=== PATIENT | male | born 1960 | race Caucasian/White ===

== ENCOUNTER → 2016-06-17 | Outpatient (CLI) | payer OTHER ==
[~2016-06-17] MED LIST: A THTAB2 PO; ASPI81TA81; ATOM60 PO; ATOR1TAB18 PO; CYCL1TAB29 PO; CYMB60CA PO; DULO1CAP PO; GABA800T PO; GLIP5TAB8 PO; GLUCTES27 TOP; IBUP-232 PO; IBUP800T23 PO; LISI-515 PO; METF1000 PO; SERO400T PO; TEGR200T PO
[2016-06-17 09:59] LABS: AUTOMATED NEUTROPHIL # 10.1 TH/MM3 (1.8-7.7); BASOPHIL % 0.2 % (0.0-2.0); EOSINOPHIL # 0.2 TH/MM3 (0-0.4); EOSINOPHIL % 1.2 % (0.0-4.0); HEMATOCRIT 37.9 % (39.0-51.0); HEMO FLAGS DIFF FINAL; LYMPH % 15.5 % (9.0-44.0); MEAN CELL VOLUME 89.5 FL (80.0-100.0); MEAN CORPUSCULAR HEMOGLOBIN 31.6 PG (27.0-34.0); MEAN CORPUSCULAR HGB CONC 35.3 % (32.0-36.0); NEUT % 78.1 % (16.0-70.0); PLATELET COUNT 244 TH/MM3 (150-450); RED BLOOD COUNT 4.24 MIL/MM3 (4.50-5.90); RED CELL DISTRIBUTION WIDTH 13.1 % (11.6-17.2); WHITE BLOOD COUNT 12.9 TH/MM3 (4.0-11.0)
[2016-06-17 10:32] LABS: ALKALINE PHOSPHATASE 110 U/L (45-117); ALT (GPT) 25 U/L (12-78); ANION GAP 7 MEQ/L (5-15); AST (GOT) 14 U/L (15-37); BICARBONATE 32.7 MEQ/L (21.0-32.0); BLOOD UREA NITROGEN 11 MG/DL (7-18); CHLORIDE 95 MEQ/L (98-107); GLOMERULAR FILTRATION RATE 66 ML/MIN (>89); GLUCOSE,FASTING 235 MG/DL (74-99); HDL CHOLESTEROL 49.5 MG/DL (40.0-60.0); LDL CHOLESTEROL 73 MG/DL (0-99); POTASSIUM 3.9 MEQ/L (3.5-5.1); SODIUM (NA) 135 MEQ/L (136-145); TOTAL BILIRUBIN ADULT 0.3 MG/DL (0.2-1.0)
[2016-06-17 11:58] LABS: HEMOGLOBIN A1a 0.9 %; HEMOGLOBIN A1b 2.4 %; HEMOGLOBIN Ao 81.8 %; HEMOGLOBIN LA1C 2.9 %; HEMOGLOBIN P3 4.1 %
== END ==
LOC: CLAB 09:09
PROVIDERS: ATTEND Family Medicine
DX: F90.0 Attention-deficit hyperactivity disorder, predominantly inattentive type (principal); E11.9 Type 2 diabetes mellitus without complications; E66.9 Obesity, unspecified; I10 Essential (primary) hypertension; E78.5 Hyperlipidemia, unspecified; F32.9 Major depressive disorder, single episode, unspecified; F31.9 Bipolar disorder, unspecified
CPT/HCPCS: 36415; 80053; 80061; 80156; 83036; 84443; 85025

== ENCOUNTER 2016-10-13 21:03 | Emergency (ER) | payer OTHER ==
[~2016-10-13 21:03] MED LIST changes: -CYCL1TAB29 PO; -DULO1CAP PO; -IBUP-232 PO
[2016-10-13 21:06] VITALS: BP 139/78; PULSE 98; RESP 16; TEMP 98.1; O2SAT 98
--- NOTE | 2016-10-13 21:43 | PD ---
Physical Exam Date Seen by Provider: Oct 13, 2016 Time Seen by Provider: 21:41 Data Data Last Documented VS Vital Signs Date Time Temp Pulse Resp B/P Pulse Ox O2 Delivery O2 Flow Rate FiO2 10/13/16 21:06 98.1 98 16 139/78 98 Room Air MDM Supervised Visit with SARA: No Narrative Course 55 YO M with PMH of DM, HTN with complaint of right knee pain. Onset after fall this AM. Worsening over the day. Patient is ambulatory with a limp. Vitals reviewed. Awaiting bed placement. Tiki Mccray Oct 13, 2016 21:42
[2016-10-13] MEDS ORDERED: IBUP800T23 PO (22:10)
[2016-10-13] MEDS ORDERED: CYCL1TAB29 PO (22:10)
--- NOTE | 2016-10-13 22:16 | PD ---
HPI Chief Complaint: Injury Time Seen by Provider: 22:10 Travel History International Travel<30 days: No Contact w/Intl Traveler<30days: No Traveled to known affect area: No History of Present Illness HPI Patient is a 55-year-old male presenting to emergency for evaluation of right knee pain. Patient states he was working on his car when he went to stand up, he states he almost lost his balance and that is when he felt his knee pull. He denies landing on his knee. Patient was ambulatory after the initial incident occurred. He reports resting this afternoon and when he attempted to get up the pain was worse so he presented to the emergency department for evaluation. He reports the pain is a 5 out of 10 and describes it as sore, he has been taking ibuprofen. PFSH Past Medical History Blood Disorders: No Bipolar Disorder: Yes Anxiety: Yes Depression: Yes Cancer: No Cardiovascular Problems: Yes High Cholesterol: Yes Diabetes: Yes Patient Takes Glucophage: No Endocrine: Yes Glaucoma: No Genitourinary: Yes Headaches: Yes Hepatitis: No Hiatal Hernia: No Hypertension: Yes Immune Disorder: No Kidney Stones: Yes Musculoskeletal: Yes Neurologic: Yes Psychiatric: Yes (BIPOLAR) Respiratory: Yes Integumentary: Yes (RASH ON CHEST ANTERIOR CHEST WALL STATES BEEN THERE AWHILE ) Thyroid Disease: No PNEUMOCCOCAL Vaccine (Year): 1 Past Surgical History Abdominal Surgery: Yes (UMBILICAL HERNIA REPAIR) AICD: No Arteriovenous Shunt: No Insulin Pump: No Joint Replacement: No Neurologic Surgery: Yes (LUMBAR DISCECTOMY) Pacemaker: No Tonsillectomy: Yes Other Surgery: Yes Social History Alcohol Use: No Tobacco Use: Yes (1 PPD) Substance Use: No Allergies-Medications (Allergen,Severity, Reaction): Coded Allergies: No Known Allergies (Verified , 06/22/16) Reported Meds & Prescriptions Reported Meds & Active Scripts Active Lisinopril 20 Mg Tab 20 Mg PO DAILY Atorvastatin (Atorvastatin Calcium) 80 Mg Tab 80 Mg PO HS Glipizide 5 Mg Tab 5 Mg PO TID Take 30 minutes before a meal Gabapentin 800 Mg Tab 800 Mg PO QID [email or web address] Contour Next Blood Test Strips (Blood Glucose Test Strips) 1 Cadence Cadence 1 Strip TOP DAILY Metformin (Metformin HCl) 1,000 Mg Tab 1,000 Mg PO BIDPC With meals Reported Aspir-81 (Aspirin) 81 Mg Tabdr Ibuprofen 800 Mg Tab 800 Mg PO TID Cymbalta DR (Duloxetine HCl) 60 Mg Capdr 60 Mg PO HS Strattera (Atomoxetine HCl) 60 Mg Cap 60 Mg PO DAILY Seroquel (Quetiapine Fumarate) 400 Mg Tab 400 Mg PO BID Tegretol (Carbamazepine) 200 Mg Tab 200 Mg PO BID Review of Systems Except as stated in HPI: all other systems reviewed are Neg Musculoskeletal: Positive: Myalgias, Pain Physical Exam Narrative GENERAL: Well-nourished, well-developed patient. SKIN: Focused skin assessment warm/dry. HEAD: Normocephalic. EYES: No scleral icterus. No injection or drainage. NECK: Supple, trachea midline. No JVD or lymphadenopathy. CARDIOVASCULAR: Regular rate and rhythm without murmurs, gallops, or rubs. RESPIRATORY: Breath sounds equal bilaterally. No accessory muscle use. GASTROINTESTINAL: Abdomen soft, non-tender, nondistended. MUSCULOSKELETAL: No cyanosis, or edema. No obvious deformities noted. Full range of motion in right knee, no crepitus noted. Negative anterior drawer. Patient is neurovascularly intact. BACK: Nontender without obvious deformity. No CVA tenderness. Data Data Last Documented VS Vital Signs Date Time Temp Pulse Resp B/P Pulse Ox O2 Delivery O2 Flow Rate FiO2 10/13/16 21:06 98.1 98 16 139/78 98 Room Air [facility] Medical Decision Making Medical Screen Exam Complete: Yes Emergency Medical Condition: Yes Interpretation(s) Vital Signs Date Time Temp Pulse Resp B/P Pulse Ox O2 Delivery O2 Flow Rate FiO2 10/13/16 21:06 98.1 98 16 139/78 98 Room Air Differential Diagnosis Sprain versus strain versus spasm versus arthritis versus tear Narrative Course Patient is a 55-year-old male presenting with right knee pain that occurred earlier this morning. It was exacerbated after a period of rest this afternoon. Patient is ambulatory on his knee, there is no obvious deformities, he has full range of motion. It is less likely that patient has a fracture at this time because knee did not make impact with anything. His pain was exacerbated after he rested this afternoon, likely suggesting that pain is more musculoskeletal in nature. Patient was encouraged to trial conservative management. Patient was advised to continue range of motion exercises, alternate heat and ice to affected area, take medications as directed, avoid exacerbating activities. He was advised to follow-up with Dr. Emmanuel in the clinic in one week area he was advised to return to emergency department for any new or worsening symptoms. Patient verbalized understanding of these instructions. Patient is stable for discharge Diagnosis Primary Impression: Knee pain Qualified Code: M25.561 - Right knee pain, unspecified chronicity Referrals: Nia Emmanuel MD 1 week Patient Instructions: General Instructions, Knee Exercises (GEN), Knee Pain (ED ) Additional Instructions: Rest, ice, elevate extremity Continue range of motion exercises Avoid exacerbating activities Take medications as directed Follow-up with your primary doctor Return to emergency department for any new or worsening symptoms Med/Other Pt SpecificInfo: Prescription(s) given Scripts Cyclobenzaprine (Flexeril)10 Mg Tab10 Mg PO TID PRN (MUSCLE SPASM) 7 Days Ref 0 Prov:Ivana Dia 10/13/16 Ibuprofen 800 Mg [id number] Mg PO Q6HR PRN (PAIN) #40 TAB Ref 0 Prov:Ivana Dia 10/13/16 Disposition: 01 DISCHARGE HOME Condition: Stable Ivana Dia Oct 13, 2016 22:16
[2016-10-13 22:21] VITALS: BP 167/54
== END 2016-10-13 22:22 | disposition home or self-care (01) ==
LOC: NEPD 21:03
DX: M25.561 Pain in right knee (principal); I10 Essential (primary) hypertension; E11.9 Type 2 diabetes mellitus without complications; E78.00 Pure hypercholesterolemia, unspecified; F17.200 Nicotine dependence, unspecified, uncomplicated; Z79.84 Long term (current) use of oral hypoglycemic drugs; Z86.79 Personal history of other diseases of the circulatory system; Z87.448 Personal history of other diseases of urinary system; Z87.39 Personal history of other diseases of the musculoskeletal system and connective tissue; Z86.59 Personal history of other mental and behavioral disorders
CPT/HCPCS: 99283

== ENCOUNTER → 2016-12-23 | Outpatient (CLI) | payer OTHER ==
[~2016-12-23] MED LIST changes: -A THTAB2 PO; -ATOM60 PO; +GABA600T PO; -GABA800T PO; +META48.53 PO; +TAMS5CAP PO
[2016-12-23 16:53] LABS: HEMOGLOBIN A1a 0.9 %; HEMOGLOBIN A1b 2.4 %; HEMOGLOBIN Ao 81.9 %; HEMOGLOBIN LA1C 3.2 %
== END ==
LOC: CLAB 08:55
PROVIDERS: ATTEND Family Medicine
DX: E11.9 Type 2 diabetes mellitus without complications (principal); R39.11 Hesitancy of micturition
CPT/HCPCS: 83036; 84153

== ENCOUNTER 2017-01-26 09:18 | Emergency (ER) | payer OTHER ==
[~2017-01-26] VITALS: Ht 177.8 cm; Wt 91.0 kg
[2017-01-26 09:20] VITALS: BP 154/73; PULSE 94; RESP 17; TEMP 98.4; O2SAT 98
[2017-01-26] MEDS ORDERED: TAMS5CAP PO (09:32)
--- NOTE | 2017-01-26 11:08 | PD ---
HPI Chief Complaint: Skin Problem Time Seen by Provider: 10:02 Travel History International Travel<30 days: No Contact w/Intl Traveler<30days: No Traveled to known affect area: No History of Present Illness HPI STATES THAT HE HAS NOTED PURPLE LOOKING TOENAIL TO BOTH SECOND TOES, PATIENT STATES DOESN'T RECALL ANY DIRECT TRAUMA BUT WOKE UP WITH THIS. PER PT HE HAS NO CLEAT FEEDER AT THIS POINT. DENIES PAIN, NO DISCOLORATION TO REST OF FOOT, NO ITCHING, NO PAIN. PFSH Past Medical History Blood Disorders: No Bipolar Disorder: Yes Anxiety: Yes Depression: Yes Cancer: No Cardiovascular Problems: Yes High Cholesterol: Yes Diabetes: Yes Patient Takes Glucophage: Yes Endocrine: Yes Gastrointestinal Disorders: Yes Glaucoma: No Genitourinary: Yes Headaches: Yes Hepatitis: No Hiatal Hernia: No Hypertension: Yes Immune Disorder: No Kidney Stones: Yes Musculoskeletal: Yes Neurologic: Yes Psychiatric: Yes (BIPOLAR) Respiratory: Yes Integumentary: Yes (RASH ON CHEST ANTERIOR CHEST WALL STATES BEEN THERE AWHILE ) Thyroid Disease: No PNEUMOCCOCAL Vaccine (Year): 1 Past Surgical History Abdominal Surgery: Yes (UMBILICAL HERNIA REPAIR) AICD: No Arteriovenous Shunt: No Insulin Pump: No Joint Replacement: No Neurologic Surgery: Yes (LUMBAR DISCECTOMY) Pacemaker: No Tonsillectomy: Yes Other Surgery: Yes Social History Alcohol Use: No Tobacco Use: Yes (1 PPD) Substance Use: No Allergies-Medications (Allergen,Severity, Reaction): Coded Allergies: No Known Allergies (Verified , 12/22/16) Reported Meds & Prescriptions Reported Meds & Active Scripts Active Flomax (Tamsulosin HCl) 0.4 Mg Cap 0.4 Mg PO HS Gabapentin 600 Mg Tab 2 Tab PO TID Metformin (Metformin HCl) 1,000 Mg Tab 1,000 Mg PO BIDPC With meals Lisinopril 20 Mg Tab 20 Mg PO DAILY Atorvastatin (Atorvastatin Calcium) 80 Mg Tab 80 Mg PO HS Glipizide 5 Mg Tab 5 Mg PO TID Take 30 minutes before a meal [facility] Contour Next Blood Test Strips (Blood Glucose Test Strips) 1 Cadence Cadence 1 Strip TOP DAILY Reported Flomax (Tamsulosin HCl) 0.4 Mg Cap 0.4 Mg PO HS Metamucil Original Texture (Psyllium Hydrophilic Mucilloid) 48.57 % Pow 1 Scoop PO BID PRN 1 rounded TEASPOON in 8 oz of liquid at the first sign of irregularity. Aspir-81 (Aspirin) [address] (Duloxetine HCl) 60 Mg Capdr 60 Mg PO HS Seroquel (Quetiapine Fumarate) 400 Mg Tab 400 Mg PO BID Tegretol (Carbamazepine) 200 Mg Tab 200 Mg PO BID Review of Systems Except as stated in HPI: all other systems reviewed are Neg Physical Exam Narrative GENERAL: SKIN: Warm and dry. HEAD: Atraumatic. Normocephalic. EYES: Pupils equal and round. No scleral icterus. No injection or drainage. ENT: No nasal bleeding or discharge. Mucous membranes pink and moist. NECK: Trachea midline. No JVD. CARDIOVASCULAR: Regular rate and rhythm. RESPIRATORY: No accessory muscle use. Clear to auscultation. Breath sounds equal bilaterally. GASTROINTESTINAL: Abdomen soft, non-tender, nondistended. MUSCULOSKELETAL: Extremities without clubbing, cyanosis, or edema. No obvious deformities. GOOD DISTAL PULSES TO DP BILATERALLY, SECOND TOE BILATERALLY HAS E /O SUBUNGUAL HEMATOMA, NEUROLOGICAL: Awake and alert. No obvious cranial nerve deficits. Motor grossly within normal limits. Five out of 5 muscle strength in the arms and legs. Normal speech. PSYCHIATRIC: Appropriate mood and affect; insight and judgment normal. Data Data Last Documented VS Vital Signs Date Time Temp Pulse Resp B/P (MAP) Pulse Ox O2 Delivery O2 Flow Rate FiO2 01/26/17 11:21 01/26/17 09:20 98.4 94 17 98 [facility] Medical Decision Making Medical Screen Exam Complete: Yes Emergency Medical Condition: Yes Medical Record Reviewed: Yes Differential Diagnosis CELLULITIS V HEMATOMA V PARONYCHIA Narrative Course PATIENT EVALUATED AND NOT FOUND TO HAVE ANY PARONYCHIA OR CELLULITIS AND PURELY SUBUNGUAL HEMATOMA THAT WAS CHANGING/IMPROVING, NOT REQUIRING TREPHINATION Diagnosis Primary Impression: SUBUNGUAL HEMATOMA OF SECOND TOE BILATERALLY Referrals: Steffany Kelly DPM FOR FURTHER REGULAR FOOT CARE IN LIEU OF YOUR DIABETES HISTORY Patient Instructions: General Instructions, Subungual Hematoma (ED) Disposition: 01 DISCHARGE HOME Condition: Stable Kenan Diaz MD Jan 26, 2017 10:36
== END 2017-01-26 11:21 | disposition home or self-care (01) ==
LOC: NEPD 09:18
DX: S90.122A Contusion of left lesser toe(s) without damage to nail, initial encounter (principal); S90.121A Contusion of right lesser toe(s) without damage to nail, initial encounter; X58.XXXA Exposure to other specified factors, initial encounter; I10 Essential (primary) hypertension; E11.9 Type 2 diabetes mellitus without complications; E78.00 Pure hypercholesterolemia, unspecified; Z79.84 Long term (current) use of oral hypoglycemic drugs
CPT/HCPCS: 99281

== ENCOUNTER 2017-09-05 11:54 | Emergency (ER) | payer SELFPAY ==
[~2017-09-05] VITALS: Ht 177.8 cm; Wt 86.0 kg
[~2017-09-05 11:54] MED LIST changes: -ATOR1TAB18 PO; +ATOR80TA45 PO; -IBUP800T23 PO
[2017-09-05 11:57] VITALS: BP 160/72; PULSE 95; RESP 16; TEMP 97.8; O2SAT 99
--- NOTE | 2017-09-05 12:18 | PD ---
HPI Chief Complaint: Diabetic Time Seen by Provider: 12:02 Travel History International Travel<30 days: No Contact w/Intl Traveler<30days: No Traveled to known affect area: No History of Present Illness HPI 56-year-old male presents emergency department for evaluation the elevated blood sugar and medication refill. Patient states that he last saw Dr. Damico about 6 months ago who graciously prescribed 6 months of his medications for his diabetes. Patient states that he has been out of his medications for a month. These medications include metformin, glipizide, gabapentin. Patient says that his blood sugars been in the 2-300 range for a while and his blood sugar this morning was 214. Currently his blood sugars 388 according to triage. Patient says that he has been actively trying to lose weight to decrease his blood sugar naturally however, has been unsuccessful. Patient has a history of diabetes mellitus type 2, depression, bipolar disorder , hypertension, intermittent claudication, hyperlipidemia, diabetic neuropathy. He has no complaints today except that his blood sugar is elevated. PFSH Past Medical History Blood Disorders: No Bipolar Disorder: Yes Anxiety: Yes Depression: Yes Cancer: No Cardiovascular Problems: Yes High Cholesterol: Yes Diabetes: Yes Endocrine: Yes Gastrointestinal Disorders: Yes Glaucoma: No Genitourinary: Yes Headaches: Yes Hepatitis: No Hiatal Hernia: No Hypertension: Yes Immune Disorder: No Kidney Stones: Yes Musculoskeletal: Yes Neurologic: Yes Psychiatric: Yes (BIPOLAR) Respiratory: Yes Integumentary: Yes (RASH ON CHEST ANTERIOR CHEST WALL STATES BEEN THERE AWHILE ) Thyroid Disease: No PNEUMOCCOCAL Vaccine (Year): 1 Past Surgical History Abdominal Surgery: Yes (UMBILICAL HERNIA REPAIR) AICD: No Arteriovenous Shunt: No Insulin Pump: No Joint Replacement: No Neurologic Surgery: Yes (LUMBAR DISCECTOMY) Pacemaker: No Tonsillectomy: Yes Other Surgery: Yes Social History Alcohol Use: No Tobacco Use: Yes (1 PPD) Substance Use: No Allergies-Medications (Allergen,Severity, Reaction): Coded Allergies: No Known Allergies (Verified Adverse Reaction, Unknown, 09/05/17) Reported Meds & Prescriptions Reported Meds & Active Scripts Active Gabapentin 600 Mg Tab 600 Mg PO TID 14 Days Glipizide 5 Mg Tab 5 Mg PO BIDAC 14 Days Take 30 minutes before a meal Metformin (Metformin HCl) 1,000 Mg Tab 1,000 Mg PO BIDPC 14 Days Flomax (Tamsulosin HCl) 0.4 Mg Cap 0.4 Mg PO HS Gabapentin 600 Mg Tab 2 Tab PO TID Metformin (Metformin HCl) 1,000 Mg Tab 1,000 Mg PO BIDPC With meals Lisinopril 20 Mg Tab 20 Mg PO DAILY Atorvastatin (Atorvastatin Calcium) 80 Mg Tab 80 Mg PO HS Glipizide 5 Mg Tab 5 Mg PO TID Take 30 minutes before a meal [facility] Contour Next Blood Test Strips (Blood Glucose Test Strips) 1 Cadence Cadence 1 Strip TOP DAILY Reported Flomax (Tamsulosin HCl) 0.4 Mg Cap 0.4 Mg PO HS Metamucil Original Texture (Psyllium Hydrophilic Mucilloid) 48.57 % Pow 1 Scoop PO BID PRN 1 rounded TEASPOON in 8 oz of liquid at the first sign of irregularity. Aspir-81 (Aspirin) [address] (Duloxetine HCl) 60 Mg Capdr 60 Mg PO HS Seroquel (Quetiapine Fumarate) 400 Mg Tab 400 Mg PO BID Tegretol (Carbamazepine) 200 Mg Tab 200 Mg PO BID Review of Systems Except as stated in HPI: all other systems reviewed are Neg Physical Exam Narrative GENERAL: Well-developed, well-nourished in no apparent distress, pleasant SKIN: Focused skin assessment warm/dry. HEAD: Atraumatic. Normocephalic. EYES: Pupils equal and round. No scleral icterus. No injection or drainage. ENT: No nasal bleeding or discharge. Mucous membranes pink and moist. NECK: Trachea midline. No JVD. CARDIOVASCULAR: Regular rate and rhythm. No murmur appreciated. RESPIRATORY: No accessory muscle use. Clear to auscultation. Breath sounds equal bilaterally. GASTROINTESTINAL: Abdomen soft, non-tender, nondistended. Hepatic and splenic margins not palpable. No CVA tenderness MUSCULOSKELETAL: No obvious deformities. No clubbing. No cyanosis. No edema. NEUROLOGICAL: Awake and alert. No obvious cranial nerve deficits. Motor grossly within normal limits. Normal speech. PSYCHIATRIC: Appropriate mood and affect; insight and judgment normal. Data Data Last Documented VS Vital Signs Date Time Temp Pulse Resp B/P (MAP) Pulse Ox O2 Delivery O2 Flow Rate FiO2 09/05/17 11:57 97.8 95 16 160/72 (101) 99 Orders Orders Comprehensive Metabolic Panel (09/05/17 12:22) Blood Glucose (09/05/17 12:22) Blood Glucose (09/05/17 13:22) Sodium Chlor 0.9% 1000 Ml Inj (Ns 1000 M (09/05/17 12:22) Sodium Chlor 0.9% 1000 Ml Inj (Ns 1000 M (09/05/17 12:52) Sodium Chloride 0.9% Flush (Ns Flush) (09/05/17 12:30) Complete Blood Count With Diff (09/05/17 12:22) Labs Laboratory Tests Test 09/05/17 12:30 White Blood Count 12.2 TH/MM3 Red Blood Count 4.74 MIL/MM3 Hemoglobin 14.7 GM/DL Hematocrit 42.1 % Mean Corpuscular Volume 88.9 FL Mean Corpuscular Hemoglobin 31.1 PG Mean Corpuscular Hemoglobin Concent 35.0 % Red Cell Distribution Width 13.6 % Platelet Count 229 TH/MM3 Mean Platelet Volume 7.9 FL Neutrophils (%) (Auto) 69.0 % Lymphocytes (%) (Auto) 21.6 % Monocytes (%) (Auto) 7.0 % Eosinophils (%) (Auto) 1.9 % Basophils (%) (Auto) 0.5 % Neutrophils # (Auto) 8.5 TH/MM3 Lymphocytes # (Auto) 2.6 TH/MM3 Monocytes # (Auto) 0.9 TH/MM3 Eosinophils # (Auto) 0.2 TH/MM3 Basophils # (Auto) 0.1 TH/MM3 CBC Comment DIFF FINAL Differential Comment Blood Urea Nitrogen 15 MG/DL Creatinine 1.46 MG/DL Random Glucose 362 MG/DL Total Protein 7.8 GM/DL Albumin 4.3 GM/DL Calcium Level 9.9 MG/DL Alkaline Phosphatase 90 U/L Aspartate Amino Transf (AST/SGOT) 19 U/L Alanine Aminotransferase (ALT/SGPT) 36 U/L Total Bilirubin 0.4 MG/DL Sodium Level 137 MEQ/L Potassium Level 4.5 MEQ/L Chloride Level 103 MEQ/L Carbon Dioxide Level 22.9 MEQ/L Anion Gap 11 MEQ/L Estimat Glomerular Filtration Rate 50 ML/MIN [facility] Medical Decision Making Medical Screen Exam Complete: Yes Emergency Medical Condition: Yes Differential Diagnosis Medication refill, diabetes mellitus with peripheral neuropathy, malingering, medication noncompliance Narrative Course 56-year-old male presents emergency department evaluation of elevated blood sugar and medication refill. Patient states that his blood sugars have been elevated and he decided to come to emergency department. Vital signs stable. Blood sugar 388 at triage. His exam findings demonstrate a well-developed, well-nourished 56-year-old male in no acute distress. He denies any complaints at this time. He only requests his medication. CBC & BMP Diagram 09/05/17 12:30 Total Protein 7.8, Albumin 4.3, Calcium Level 9.9, Alkaline Phosphatase 90, Aspartate Amino Transf (AST/SGOT) 19, Alanine Aminotransferase (ALT/SGPT) 36, Total Bilirubin 0.4 2L IVF administered. Repeat BGL 332. Patient is discharged home. He is advised to follow-up with the primary care physician for further refills. Diagnosis Primary Impression: Diabetes mellitus Qualified Codes: E11.9 - Type 2 diabetes mellitus without complications Additional Impressions: Elevated blood sugar level Medication refill Referrals: [facility] Additional Instructions: Take all medications as prescribed. He will not receive another refill of your medications. I strongly advised to follow-up with [facility] for your care. Follow-up with [facility] as discussed. Scripts Gabapentin (Gabapentin) 600 Mg Tab 600 MG PO TID for 14 Days, #42 TAB 0 Refills Prov: Sylvain Gordon MD 09/05/17 Glipizide (Glipizide) 5 Mg Tab 5 MG PO BIDAC for Blood Sugar Management for 14 Days, #30 TAB 0 Refills Take 30 minutes before a meal Prov: Sylvain Gordon MD 09/05/17 Metformin (Metformin) 1,000 Mg Tab 1000 MG PO BIDPC for Blood Sugar Management for 14 Days, #30 TAB 0 Refills Prov: Sylvain Gordon MD 09/05/17 Disposition: 01 DISCHARGE HOME Condition: Stable Gale Pete September 05, 2017 12:18
[2017-09-05] MEDS ORDERED: GLIP5TAB8 PO (12:22)
[2017-09-05] MEDS ORDERED: SODIUM CHLOR 0.9% 1000 ML INJ 1,000 ML IV ONE ×2 (12:22→12:52)
[2017-09-05] MEDS ORDERED: METF1000 PO (12:22)
[2017-09-05] MEDS ORDERED: GABA600T PO (12:22)
[2017-09-05] MEDS ORDERED: SODIUM CHLORIDE 0.9% FLUSH 10 ML FLUSH IVF PRN (12:30)
[2017-09-05 12:41] LABS: AUTOMATED NEUTROPHIL # 8.5 TH/MM3 (1.8-7.7); BASOPHIL # 0.1 TH/MM3 (0-0.2); BASOPHIL % 0.5 % (0.0-2.0); EOSINOPHIL # 0.2 TH/MM3 (0-0.4); EOSINOPHIL % 1.9 % (0.0-4.0); HEMATOCRIT 42.1 % (39.0-51.0); HEMOGLOBIN 14.7 GM/DL (13.0-17.0); LYMPH % 21.6 % (9.0-44.0); LYMPHOCYTE # 2.6 TH/MM3 (1.0-4.8); MEAN CELL VOLUME 88.9 FL (80.0-100.0); MEAN CORPUSCULAR HEMOGLOBIN 31.1 PG (27.0-34.0); MEAN PLATELET VOLUME 7.9 FL (7.0-11.0); MONOCYTE # 0.9 TH/MM3 (0-0.9); PLATELET COUNT 229 TH/MM3 (150-450); RED BLOOD COUNT 4.74 MIL/MM3 (4.50-5.90); RED CELL DISTRIBUTION WIDTH 13.6 % (11.6-17.2); WHITE BLOOD COUNT 12.2 TH/MM3 (4.0-11.0)
[2017-09-05 13:03] LABS: ALBUMIN 4.3 GM/DL (3.4-5.0); ALT (GPT) 36 U/L (12-78); AST (GOT) 19 U/L (15-37); BICARBONATE 22.9 MEQ/L (21.0-32.0); BLOOD UREA NITROGEN 15 MG/DL (7-18); CALCIUM 9.9 MG/DL (8.5-10.1); CHLORIDE 103 MEQ/L (98-107); CREATININE 1.46 MG/DL (0.60-1.30); GLOMERULAR FILTRATION RATE 50 ML/MIN (>89); GLUCOSE,RANDOM 362 MG/DL (74-106); SODIUM (NA) 137 MEQ/L (136-145)
[2017-09-05 13:05] LABS: ALKALINE PHOSPHATASE 90 U/L (45-117); TOTAL BILIRUBIN ADULT 0.4 MG/DL (0.2-1.0); TOTAL PROTEIN 7.8 GM/DL (6.4-8.2)
== END 2017-09-05 14:50 | disposition home or self-care (01) ==
LOC: NEPC 11:54
DX: E11.65 Type 2 diabetes mellitus with hyperglycemia (principal); F17.200 Nicotine dependence, unspecified, uncomplicated; E78.00 Pure hypercholesterolemia, unspecified; Z79.84 Long term (current) use of oral hypoglycemic drugs
CPT/HCPCS: 80053; 85025; 99284; J7030